=== PATIENT | male | born 1975 | race Caucasian/White ===

== ENCOUNTER 2016-10-03 08:00 | Emergency (ER) | payer OTHER ==
[2016-10-03 08:56] LABS: HEMOGLOBIN 16.1 gm/dl (14.0-17.5); RED BLOOD COUNT 5.2 M/UL (4.20-5.50); WHITE BLOOD COUNT 9.2 K/UL (4.5-11.0)
[2016-10-03 09:22] LABS: BUN/CREATININE RATIO 18 (0-10)
== END 2016-10-03 18:46 | disposition left against medical advice (07) ==
LOC: ER1 08:00 → ZEROF 10:29
PROVIDERS: Emergency Medicine
DX: R07.9 Chest pain, unspecified (principal); R06.02 Shortness of breath; R11.0 Nausea; F17.200 Nicotine dependence, unspecified, uncomplicated
CPT/HCPCS: 36415; 71010; 80053; 82550; 82553; 83874; 84484; 85025; 85379; 99285

== ENCOUNTER 2016-11-12 19:02 | Emergency (ER) | payer OTHER ==
[2016-11-12 19:28] LABS: HEMOGLOBIN 16.1 gm/dl (14.0-17.5); RED BLOOD COUNT 5.22 M/UL (4.20-5.50); WHITE BLOOD COUNT 7.2 K/UL (4.5-11.0)
[2016-11-12 19:50] LABS: BUN/CREATININE RATIO 11 (0-10)
== END 2016-11-12 20:15 | disposition left against medical advice (07) ==
LOC: ER1 19:02
PROVIDERS: Family Medicine
DX: R07.9 Chest pain, unspecified (principal); J02.9 Acute pharyngitis, unspecified
CPT/HCPCS: 36415; 80053; 82550; 82553; 83874; 84484; 85025; 93005; 99285

== ENCOUNTER 2016-11-20 14:38 | Emergency (ER) | payer OTHER | END 2016-11-20 17:17 | disposition home or self-care (01) | LOC: ER1 14:38 | DX: R07.9 Chest pain, unspecified (principal); R11.2 Nausea with vomiting, unspecified; M25.512 Pain in left shoulder; F17.210 Nicotine dependence, cigarettes, uncomplicated | CPT/HCPCS: 71010; 93005; 99285 ==

== ENCOUNTER 2016-11-30 21:21 | Emergency (ER) | payer OTHER ==
[2016-11-30 21:42] LABS: HEMOGLOBIN 15.3 gm/dl (14.0-17.5); RED BLOOD COUNT 4.96 M/UL (4.20-5.50); WHITE BLOOD COUNT 6.8 K/UL (4.5-11.0)
[2016-11-30 22:01] LABS: BUN/CREATININE RATIO 15 (0-10)
== END 2016-12-01 00:55 | disposition home or self-care (01) ==
LOC: ER1 21:21
PROVIDERS: Emergency Medicine
DX: R07.9 Chest pain, unspecified (principal)
CPT/HCPCS: 36415; 71010; 80053; 80307; 81001; 82550; 82553; 83874; 83880; 84484; 85025; 85379; 93005; 99285; J7030